=== PATIENT | female | born 1965 | race African-American/Black ===

== ENCOUNTER → 2017-03-18 | Outpatient (CLI) | payer BC ==
[~2017-03-18] MED LIST: BACTROBAN22 GM TP; BIOTIN PO; LISINOPRIL5 MG PO; VITAMIN B 12 PO; VOLTAREN75 MG PO
--- NOTE | ~2017-03-18 | MY11 ---
[facility] A Service of [facility] RADIOLOGY TEXT RESULTS PATIENT: MARCELLE WAY V LOCATION: [facility] : [birth year] UNIT #: [id number] AGE: [address]: Mallorie Romeo MD SEX: F ORDER DR: [id number] [facility]. [place], [place] [address] [id number] O MR#: [id number] Acc #: [id number] NAME: MARCELLE WAY : 1965 SEX: F STUDY DATE/TIME: 03/18/2017 16:15 UNIT: [facility] ROOM: STUDY DESCRIPTION: MY Mammogram Screening Dig Darren Attending Physician: Mallorie Romeo M.D. Referring Physician: Mallorie Romeo M.D. Ordering Physician: Mallorie Romeo M.D. Primary Care Physician: Mallorie Romeo M.D. MEDICAL IMAGING REPORT This report is preliminary unless electronic signature is present EXAM Bilateral Digital Screening Mammogram with CAD INDICATION Breast cancer screening. 51-year-old asymptomatic female. No personal or family history of breast cancer. COMPARISONS December 04, 2015, December 03, 2014, October 11, 2012, September 20, 2011, August 28, 2010, August 14, 2010, August 13, 2009, and August 07, 2008. FINDINGS There are scattered fibroglandular tissues. No suspicious findings are present. IMPRESSION No mammographic evidence of malignancy. Annual screening mammography and clinical breast exam are recommended. A result letter will be sent to the patient. Patients over the age of 40 are entered into a reminder system with target due date for the next mammogram. BIRADS: 1 Negative Dictated by... Sukumar Dsouza M.D. THIS IS AN ELECTRONICALLY VERIFIED REPORT Sukumar Dsouza M.D. at 03/21/2017 5:21 PM [facility] A Service [facility] RADIOLOGY TEXT RESULTS PATIENT: MARCELLE WAY V LOCATION: [facility] : 65 UNIT #: [id number] AGE: [address]: Mallorie Romeo MD SEX: F ORDER DR: KYLER/lupillo TD: 03/21/2017 09:25 JOB #: [id number] MEDICAL IMAGING REPORT Page 1 of 1 COPY
== END | disposition home or self-care (01) ==
LOC: CWCC 15:55
DX: Z12.31 Encounter for screening mammogram for malignant neoplasm of breast (principal)
CPT/HCPCS: G0202